=== PATIENT | female | born 1995 | race Caucasian/White ===

== ENCOUNTER 2016-12-18 18:00 | Emergency (ER) | payer BC ==
[~2016-12-18] VITALS: Wt 97.5 kg
[~2016-12-18 18:00] MED LIST: AMOXICILLIN500 MG PO; ASPIRIN81 M1 PO; AURALGAN 15 ML15 ML OT; BACTRIM DS 8001 TA1 PO; BENADRYL ALLERG25 M5 PO; CEPHALEXIN500 M1 PO; IRON325 M1 PO; KENALOG 0.1% OI15 GM PO; KENALOG0.1% TP; MACROBID100 M1 PO; MEDROL DOSEPAK4 MG PO; METHYLDOPA250 MG PO; MOTRIN600 MG PO; MOTRIN800 MG PO; MULTI VITAMINS1 TAB PO; NKHM; PREDNISONE50 MG PO; PRENATAL1 TA1 PO; VISTARIL25 MG PO; VISTARIL50 MG PO; VITAMIN D400 I1 PO; ZITHROMAX Z PA250 MG PO; ZOFRAN ODT4 MG SL; ZOFRAN4 MG PO; ZOLOFT50 MG PO
[2016-12-18 18:18] VITALS: BP 142/81
== END 2016-12-18 19:28 | disposition home or self-care (01) ==
LOC: ED 18:00
DX: J02.0 Streptococcal pharyngitis (principal); Z79.899 Other long term (current) drug therapy

== ENCOUNTER 2017-09-15 18:37 | Inpatient (IN) | payer BC ==
[~2017-09-15] VITALS: Ht 165.1 cm; Wt 82.3 kg
[2017-09-15 18:40] VITALS: BP 146/75
[2017-09-15] MEDS ORDERED: VENLAFAXINE HYD75 M3 PO (18:46)
[2017-09-15] MEDS ORDERED: EFFEXOR XR75 M1 PO (18:46)
[2017-09-15 19:08] LABS: BASO % 0.3 % (0.0-1.0); EOS % 0.3 % (1.0-4.0); HEMATOCRIT 41.9 % (37.0-47.0); HEMOGLOBIN 14.6 g/dl (12.0-16.0); LYMPH # 1.9 10*3/uL (1.3-4.4); MEAN CORPUSCULAR HGB 28.9 pg (27.0-31.0); MEAN CORPUSCULAR HGB CONC 34.8 g/dl (33.0-37.0); MONO # 0.6 10*3/uL (0.1-1.0); MONO % 5.6 % (3.0-9.0); NEUT # 8.4 10*3/uL (2.3-7.9); NEUT % 76.5 % (47.0-73.0); PLATELET COUNT AUTOMATED 257 10*3/uL (130-400); RED BLOOD COUNT 5.05 10*6/uL (4.10-5.10); RED CELL DISTRI WIDTH 12.6 % (0-14.5)
[2017-09-15 19:20] VITALS: BP 134/76
[2017-09-15 20:04] LABS: BILIRUBIN NEGATIVE (NEGATIVE); BLOOD 1+ (NEGATIVE); CLARITY SL CLOUDY (CLEAR); COLOR YELLOW (YELLOW); GLUCOSE NEGATIVE (NEGATIVE); KETONE NEGATIVE (NEGATIVE); LEUKO ESTERASE NEGATIVE (NEGATIVE); NITRITE NEGATIVE (NEGATIVE)
[2017-09-15 20:13] LABS: BACTERIA TRACE; EPITHELIAL CELLS 16-20
[2017-09-15 20:14] LABS: ALBUMIN 4.1 gm/dl (3.1-4.5); ALKALINE PHOSPHATASE 76 U/L (45-117); BUN 13 mg/dl (7-24); CHLORIDE 100 mmol/L (98-107); CREATININE 0.73 mg/dL (0.55-1.02); POTASSIUM 2.9 mmol/L (3.5-5.1); SGOT/AST 21 IU/L (3-35); SGPT/ALT 37 U/L (12-78); SODIUM 137 mmol/L (136-145); TOTAL PROTEIN 7.9 gm/dL (6.4-8.2)
[2017-09-15 20:15] LABS: BETA-HCG, QUANT < 1.0 mIU/mL (1-3); TROPONIN I < 0.015 ng/ml (<0.045)
[2017-09-15 21:43] VITALS: BP 130/76
[2017-09-15 22:00] VITALS: BP 129/70
[2017-09-16] VITALS: BP 129/70
[2017-09-16 03:08] LABS: BASO % 0.2 % (0.0-1.0); EOS # 0.1 10*3/uL (0.0-0.4); EOS % 0.8 % (1.0-4.0); LYMPH # 3.4 10*3/uL (1.3-4.4); LYMPH % 32.7 % (27.0-41.0); MEAN CELL VOLUME 83.7 fl (81.0-99.0); MEAN CORPUSCULAR HGB 28.5 pg (27.0-31.0); MEAN CORPUSCULAR HGB CONC 34.1 g/dl (33.0-37.0); MEAN PLATELET VOLUME 10.6 fl (9.6-12.3); MONO # 0.8 10*3/uL (0.1-1.0); MONO % 7.2 % (3.0-9.0); NEUT # 6.1 10*3/uL (2.3-7.9); NEUT % 58.9 % (47.0-73.0); PLATELET COUNT AUTOMATED 215 10*3/uL (130-400); RED CELL DISTRI WIDTH 12.7 % (0-14.5); WHITE BLOOD COUNT 10.4 10*3/uL (4.8-10.8)
[2017-09-16 03:19] LABS: HEMATOCRIT 34.3 % (37.0-47.0); HEMOGLOBIN 11.7 g/dl (12.0-16.0)
[2017-09-16 03:25] LABS: ALBUMIN 3.1 gm/dl (3.1-4.5); ALKALINE PHOSPHATASE 58 U/L (45-117); BUN 12 mg/dl (7-24); CHLORIDE 109 mmol/L (98-107); CHOLESTEROL 103 mg/dL (<200); CREATININE 0.58 mg/dL (0.55-1.02); HDL CHOLESTEROL 29 mg/dl (40-60); LDL CHOLESTEROL 60 mg/dL (9-159); PHOSPHOROUS 3.6 mg/dL (2.5-4.9); SGOT/AST 13 IU/L (3-35); SGPT/ALT 30 U/L (12-78); SODIUM 144 mmol/L (136-145); TRIGLYCERIDES 72 mg/dl (<150); VLDL CHOLESTEROL 14 mg/dL (6-40)
[2017-09-16 03:26] LABS: FREE T4 0.94 ng/dl (0.76-1.46)
[2017-09-16 03:28] LABS: ACT PARTIAL THROMBO TIME 24.3 SECONDS (20.8-31.5); INTERNATIONAL NORM RATIO 1.1 (2.0-3.5)
[2017-09-16 03:31] LABS: THYROID STIM HORMONE (HS) 0.719 uIU/ml (0.358-4.75)
[2017-09-16 03:32] LABS: POTASSIUM 4.2 mmol/L (3.5-5.1)
[2017-09-16 08:00] VITALS: BP 118/79
[2017-09-16 09:22] LABS: VITAMIN D, 25-HYDROXY 18.8 ng/mL (30-100)
[2017-09-16 12:00] VITALS: BP 122/80
== END 2017-09-16 14:19 | disposition home or self-care (01) | DRG 641 ==
LOC: ED 18:37 → 4E 21:05 → EDHOLD 21:05 → 4E 21:11
PROVIDERS: Hospitalist; Student in an Organized Health Care Education/Training Program
DX: E87.6 Hypokalemia (principal); E55.9 Vitamin D deficiency, unspecified; R00.1 Bradycardia, unspecified; R00.2 Palpitations; R55 Syncope and collapse; F41.9 Anxiety disorder, unspecified; F32.9 Major depressive disorder, single episode, unspecified; W18.39XA Other fall on same level, initial encounter; Z72.0 Tobacco use; Z82.49 Family history of ischemic heart disease and other diseases of the circulatory system; Z79.899 Other long term (current) drug therapy; Z72.89 Other problems related to lifestyle; Z83.3 Family history of diabetes mellitus; Z82.3 Family history of stroke; Y93.89 Activity, other specified; Y92.89 Other specified places as the place of occurrence of the external cause; Y99.8 Other external cause status

== ENCOUNTER → 2017-10-04 | Outpatient (CLI) | payer BC ==
[~2017-10-04] MED LIST changes: +EFFEXOR XR75 M1 PO; +VENLAFAXINE HYD75 M3 PO
== END | disposition home or self-care (01) ==
LOC: CP 10:00
DX: R56.9 Unspecified convulsions (principal)

== ENCOUNTER 2018-05-12 02:34 | Emergency (ER) | payer BC ==
[~2018-05-12] VITALS: Ht 172.7 cm; Wt 90.7 kg
[2018-05-12 02:34] VITALS: BP 159/75
[2018-05-12] MEDS ORDERED: CYCLOBENZAPRINE10 MG PO (03:17)
[2018-05-12] MEDS ORDERED: NAPROSYN500 MG PO (03:17)
== END 2018-05-12 03:36 | disposition home or self-care (01) ==
LOC: ED 02:34
DX: M54.6 Pain in thoracic spine (principal); F17.200 Nicotine dependence, unspecified, uncomplicated; Z98.890 Other specified postprocedural states

== ENCOUNTER 2018-12-22 08:30 | Emergency (ER) | payer BC ==
[~2018-12-22] VITALS: Ht 170.1 cm; Wt 104.3 kg
[2018-12-22 08:30] VITALS: BP 136/89
[~2018-12-22 08:30] MED LIST changes: +CYCLOBENZAPRINE10 MG PO; +NAPROSYN500 MG PO
[2018-12-22 09:18] LABS: BILIRUBIN NEGATIVE (NEGATIVE); BLOOD NEGATIVE (NEGATIVE); CLARITY SL CLOUDY (CLEAR); COLOR YELLOW (YELLOW); GLUCOSE NEGATIVE (NEGATIVE); KETONE NEGATIVE (NEGATIVE); LEUKO ESTERASE TRACE (NEGATIVE); NITRITE NEGATIVE (NEGATIVE); PH 5.5 (5.0-9.0); SPECIFIC GRAVITY 1.025 (1.005-1.030); UROBILINOGEN 0.2 E.U./dl (0.2-1.0)
[2018-12-22 09:42] LABS: BACTERIA 3+; EPITHELIAL CELLS 16-20; MUCOUS 1+
[2018-12-22] MEDS ORDERED: NAPROSYN500 MG PO (10:27)
[2018-12-22] MEDS ORDERED: CYCLOBENZAPRINE10 MG PO (10:27)
[2018-12-22] MEDS ORDERED: TYLENOL325 M1 PO (10:28)
== END 2018-12-22 10:36 | disposition home or self-care (01) ==
LOC: ED 08:30
PROVIDERS: Emergency Medicine
DX: M62.830 Muscle spasm of back (principal); M54.5 Low back pain; Z72.0 Tobacco use

== ENCOUNTER 2019-03-20 13:49 | Emergency (ER) | payer OTHER ==
[~2019-03-20] VITALS: Ht 170.1 cm; Wt 97.5 kg
[2019-03-20 13:49] VITALS: BP 143/91
[~2019-03-20 13:49] MED LIST changes: +TYLENOL325 M1 PO
[2019-03-20 14:18] LABS: BILIRUBIN NEGATIVE (NEGATIVE); BLOOD 1+ (NEGATIVE); CLARITY CLEAR (CLEAR); COLOR YELLOW (YELLOW); GLUCOSE NEGATIVE (NEGATIVE); KETONE NEGATIVE (NEGATIVE); LEUKO ESTERASE 1+ (NEGATIVE); NITRITE NEGATIVE (NEGATIVE); PH 6.5 (5.0-9.0)
[2019-03-20 14:37] LABS: BASO % 0.3 % (0.0-1.0); EOS # 0.1 10*3/uL (0.0-0.4); EOS % 0.8 % (1.0-4.0); HEMATOCRIT 39.1 % (37.0-47.0); HEMOGLOBIN 13.1 g/dl (12.0-16.0); LYMPH # 1.9 10*3/uL (1.3-4.4); LYMPH % 29.6 % (27.0-41.0); MEAN CELL VOLUME 83.7 fl (81.0-99.0); MEAN CORPUSCULAR HGB 28.1 pg (27.0-31.0); MEAN CORPUSCULAR HGB CONC 33.5 g/dl (33.0-37.0); MEAN PLATELET VOLUME 10.8 fl (9.6-12.3); MONO # 0.4 10*3/uL (0.1-1.0); MONO % 6.9 % (3.0-9.0); NEUT % 62.2 % (47.0-73.0); PLATELET COUNT AUTOMATED 226 10*3/uL (130-400); RED BLOOD COUNT 4.67 10*6/uL (4.10-5.10); RED CELL DISTRI WIDTH 13.2 % (0-14.5); WHITE BLOOD COUNT 6.4 10*3/uL (4.8-10.8)
[2019-03-20 14:40] LABS: EPITHELIAL CELLS 10; MUCOUS 3+
[2019-03-20 14:42] LABS: WBC 16-20 wbc/hpf (0-5)
[2019-03-20 14:43] LABS: BACTERIA 1+
[2019-03-20 14:51] LABS: ALBUMIN 3.5 gm/dl (3.1-4.5); ALKALINE PHOSPHATASE 71 U/L (45-117); BUN 7 mg/dl (7-24); CHLORIDE 107 mmol/L (98-107); CREATININE 0.63 mg/dL (0.55-1.02); LIPASE 78 U/L (73-393); POTASSIUM 3.5 mmol/L (3.5-5.1); SGOT/AST 19 IU/L (3-35); SGPT/ALT 39 U/L (12-78); SODIUM 139 mmol/L (136-145); TOTAL PROTEIN 7.1 gm/dL (6.4-8.2)
[2019-03-20] MEDS ORDERED: CYCLOBENZAPRINE10 MG PO (16:30)
[2019-03-20] MEDS ORDERED: SEPTDS PO (16:30)
== END 2019-03-20 16:55 | disposition home or self-care (01) ==
LOC: ED 13:49
PROVIDERS: Emergency Medicine; Nurse Practitioner Family
DX: S39.012A Strain of muscle, fascia and tendon of lower back, initial encounter (principal); N39.0 Urinary tract infection, site not specified; F17.200 Nicotine dependence, unspecified, uncomplicated; Z90.49 Acquired absence of other specified parts of digestive tract; X58.XXXA Exposure to other specified factors, initial encounter; Y93.89 Activity, other specified; Y92.89 Other specified places as the place of occurrence of the external cause; Y99.8 Other external cause status

== ENCOUNTER 2019-03-30 22:07 | Emergency (ER) | payer OTHER ==
[~2019-03-30] VITALS: Ht 170.1 cm; Wt 99.8 kg
[~2019-03-30 22:07] MED LIST changes: +SEPTDS PO
[2019-03-30 22:09] VITALS: BP 143/95
== END 2019-03-30 23:51 | disposition home or self-care (01) ==
LOC: ED 22:07
DX: S93.401A Sprain of unspecified ligament of right ankle, initial encounter (principal); F17.200 Nicotine dependence, unspecified, uncomplicated; W10.8XXA Fall (on) (from) other stairs and steps, initial encounter; Y93.89 Activity, other specified; Y92.098 Other place in other non-institutional residence as the place of occurrence of the external cause; Y99.8 Other external cause status

== ENCOUNTER 2021-03-26 05:55 | Emergency (ER) | payer SELFPAY ==
[2021-03-26 06:11] VITALS: BP 138/72
[2021-03-26 06:55] LABS: BASO % 0.2 % (0.0-1.0); EOS # 0.1 10*3/uL (0.0-0.4); HEMATOCRIT 41.3 % (37.0-47.0); LYMPH # 3.8 10*3/uL (1.3-4.4); LYMPH % 28.1 % (27.0-41.0); MEAN CELL VOLUME 85.2 fl (81.0-99.0); MEAN CORPUSCULAR HGB 29.1 pg (27.0-31.0); MEAN CORPUSCULAR HGB CONC 34.1 g/dl (33.0-37.0); MEAN PLATELET VOLUME 11.3 fl (9.6-12.3); MONO # 1.2 10*3/uL (0.1-1.0); MONO % 8.7 % (3.0-9.0); NEUT # 8.4 10*3/uL (2.3-7.9); NEUT % 61.8 % (47.0-73.0); PLATELET COUNT AUTOMATED 292 10*3/uL (130-400); RED BLOOD COUNT 4.85 10*6/uL (4.10-5.10); WHITE BLOOD COUNT 13.6 10*3/uL (4.8-10.8)
[2021-03-26 07:00] LABS: ALBUMIN 3.8 gm/dl (3.1-4.5); ALKALINE PHOSPHATASE 135 U/L (45-117); BUN 8 mg/dl (7-24); CHLORIDE 108 mmol/L (98-107); CREATININE 0.56 mg/dL (0.55-1.02); LIPASE 128 U/L (73-393); POTASSIUM 3.3 mmol/L (3.5-5.1); SGOT/AST 149 IU/L (3-35); SGPT/ALT 205 U/L (12-78); SODIUM 138 mmol/L (136-145); TOTAL PROTEIN 7.5 gm/dL (6.4-8.2)
[2021-03-26 07:16] LABS: BILIRUBIN Negative (Negative); BLOOD Trace-Lysed (Negative); CLARITY Cloudy (Clear); COLOR Dark Yellow (Yellow); GLUCOSE Negative (Negative); KETONE Negative (Negative); LEUKO ESTERASE Negative (Negative); NITRITE Negative (Negative); PH 6.5 (4.5-8.0); SPECIFIC GRAVITY 1.015 (1.001-1.030)
[2021-03-26 07:26] LABS: EPITHELIAL CELLS 0-2
[2021-03-26 07:27] LABS: BACTERIA 1+; MUCOUS 1+
== END 2021-03-26 09:47 | disposition home or self-care (01) ==
LOC: ED 05:55
PROVIDERS: Emergency Medicine
DX: R10.13 Epigastric pain (principal); R10.12 Left upper quadrant pain; R11.0 Nausea; R74.01 Elevation of levels of liver transaminase levels; Z79.2 Long term (current) use of antibiotics; Z90.49 Acquired absence of other specified parts of digestive tract; F17.200 Nicotine dependence, unspecified, uncomplicated

== ENCOUNTER 2022-04-25 20:55 | Emergency (ER) | payer OTHER ==
[~2022-04-25] VITALS: Ht 170.1 cm; Wt 90.7 kg
[2022-04-25 20:59] VITALS: BP 158/93
== END 2022-04-25 21:27 | disposition left against medical advice (07) ==
LOC: ED 20:55
DX: O46.90 Antepartum hemorrhage, unspecified, unspecified trimester (principal); Z3A.00 Weeks of gestation of pregnancy not specified